=== PATIENT | female | born 1940 | race Caucasian/White ===

== ENCOUNTER 2018-11-14 21:35 | Emergency (ER) | payer MEDICARE, OTHER ==
--- NOTE | 2018-11-14 21:51 | Emergency Department Record ---
History of Present Illness - General Chief complaint: Cold Stated complaint: COUGH,FEVER, Time Seen by Provider: 11/14/18 21:37 Source: Patient Mode of Arrival: Ambulatory Limitations: No limitations - History of Present Illness Initial comments: 78 yo female presents to ED for evaluation of cough, fever symptoms that began last night. Patient denies history of asthma or COPD, denies nausea, vomiting, or loose stools. Patient does report receiving an influenza vaccination this year as well. Patient does report several ill-contacts at home with similar symptoms as well. MD complaint: Other Onset/Timin -: Hour(s) Severity: Moderate Consistency: Intermittent Improves with: None Worsens with: Other (Deep breath) Associated Symptoms: Cough - Related Data Home Medications Medication Instructions Recorded Confirmed Last Taken Aspirin [Aspir-Low] 81 mg PO DAILY 11/14/18 11/14/18 11/14/18 Calcium Carbonate/Vitamin D3 1 each PO DAILY 11/14/18 11/14/18 11/14/18 [Calcium 600 + Vit D Tablet] Cyanocobalamin (Vitamin B-12) 1 tab PO DAILY 11/14/18 11/14/18 11/14/18 [Vitamin B-12] Ergocalciferol (Vitamin D2) 50,000 unit PO WEEKLY 11/14/18 11/14/18 11/12/18 [Vitamin D2] Furosemide 20 mg PO DAILY 11/14/18 11/14/18 11/14/18 Isosorbide Mononitrate [Imdur] 10 mg PO BID 11/14/18 11/14/18 11/14/18 Levothyroxine Sodium [Synthroid] 100 mcg PO DAILY 11/14/18 11/14/18 11/14/18 Lisinopril/Hydrochlorothiazide 1 each PO DAILY 11/14/18 11/14/18 11/14/18 [Lisinopril-Hctz 20-12.5 mg Tab] Lovastatin 20 mg PO DAILY 11/14/18 11/14/18 11/14/18 Multivitamin [Multi-Vitamin Daily] 1 each PO DAILY 11/14/18 11/14/18 11/14/18 [place]-3 Fatty Acids/Fish Oil [Fish 1 cap PO DAILY 11/14/18 11/14/18 11/14/18 Oil 1,000 mg Capsule] Omeprazole 1 cap PO BID 11/14/18 11/14/18 11/14/18 Potassium Chloride [Klor-Con] 20 meq PO DAILY 11/14/18 11/14/18 11/14/18 Rivaroxaban [Xarelto] 20 mg PO DAILY 11/14/18 11/14/18 11/14/18 Sotalol HCl [Sotalol] 80 mg PO BID 11/14/18 11/14/18 11/14/18 Allergies Allergy/AdvReac Type Severity Reaction Status Date / Time acetaminophen [From Vicodin] AdvReac NAUSEA Verified 11/14/18 22:03 amoxicillin AdvReac NAUSEA Verified 11/14/18 22:03 azithromycin AdvReac NAUSEA Verified 11/14/18 22:03 [From Zithromax Z-Steve] diphenhydramine AdvReac TACHYCARDIA Verified 11/14/18 22:03 [From Benadryl] hydrocodone [From Vicodin] AdvReac NAUSEA Verified 11/14/18 22:03 ibuprofen [From Motrin] AdvReac NAUSEA Verified 11/14/18 22:03 propoxyphene [From Darvon] AdvReac TACHYCARDIA Verified 11/14/18 22:03 Review of Systems Constitutional: Reports: Fever. Denies: Chills, Malaise, Night sweats Eyes: Denies: Eye discharge, Eye pain ENT: Reports: Congestion. Denies: Ear pain, Epistaxis Respiratory: Reports: Cough. Denies: Dyspnea Cardiovascular: Denies: Chest pain, Dyspnea on exertion Endocrine: Denies: Fatigue, Heat or cold intolerance Gastrointestinal: Denies: Abdominal pain, Nausea, Vomiting Genitourinary: Denies: Incontinence, Retention Musculoskeletal: Denies: Arthralgia, Back pain, Gout, Joint swelling Skin: Denies: Bruising, Change in color Neurological: Denies: Abnormal gait, Confusion, Headache, Seizure Psychiatric: Denies: Anxiety Hematological/Lymphatic: Denies: Anemia, Blood Clots Physical Exam - General General Appearance: Alert, Oriented x3, Cooperative, Mild distress Limitations: No limitations - Head Head exam: Atraumatic, Normocephalic, Normal inspection Head exam detail: negative: Abrasion, Contusion, White's sign, General tenderness, Hematoma, Laceration - Eye Eye exam: Normal appearance. negative: Conjunctival injection, Periorbital swelling, Periorbital tenderness, Scleral icterus - ENT Ear exam: negative: Auricular hematoma, Auricular trauma Nasal Exam: negative: Active bleeding, Discharge, Dried blood, Foreign body Mouth exam: negative: Drooling, Laceration, Muffled voice, Tongue elevation - Neck Neck exam: Normal inspection. negative: Meningismus, Tenderness - Respiratory Respiratory exam: Normal lung sounds bilaterally. negative: Decreased breath sounds, Rales, Respiratory distress, Rhonchi, Stridor - Cardiovascular Cardiovascular Exam: Regular rate, Normal rhythm, Normal heart sounds - GI/Abdominal GI/Abdominal exam: Soft. negative: Rebound, Rigid, Tenderness - Rectal Rectal exam: Deferred - exam: Deferred - Extremities Extremities exam: Normal inspection. negative: Pedal edema, Tenderness - Back Back exam: Denies: CVA tenderness (R), CVA tenderness (L) - Neurological Neurological exam: Alert, Normal gait, Oriented X3 - Psychiatric Psychiatric exam: Normal affect, Normal mood - Skin Skin exam: Normal color. negative: Abrasion Type of lesion: negative: abrasion Course Vital Signs 11/14/18 21:45 Temperature 99.2 F Pulse Rate [ 66 Pulse Ox Probe] Respiratory 24 Rate Blood Pressure 142/63 [Left Arm] Pulse Ox 95 - Reevaluation(s) Reevaluation #1: 11/14/18 22:10 Influenza negative Reevaluation #2: 11/14/18 22:16 CXR: Negative for acute infiltrate Patient and her family members were updated on all results History and examination appear c/w viral URI Patient appears stable for discharge at this time. Disposition Disposition: Discharge Clinical Impression: URI (upper respiratory infection) Qualifiers: URI type: unspecified URI Qualified Code(s): J06.9 - Acute upper respiratory infection, unspecified Disposition: Home, Self-Care Condition: (2) Stable Instructions: Upper Respiratory Infection (ED) Additional Instructions: Return to ED if your symptoms worsen or if you have any concerns. Follow-up with your family doctor in 3-5 days as directed. Forms: Patient Portal Access Time of Disposition: 22:17 Quality - Quality Measures Quality Measures: N/A - Blood Pressure Screening Does Patient Have Any of the Following: Active Dx of HTN Blood Pressure Classification: Hypertensive Reading Systolic Measurement: 142 Diastolic Measurement: 63 Screening for High Blood Pressure: Patient Exclusion, Hx of HTN [G9744]
[2018-11-14 22:09] LABS: INFLUENZA A NEGATIVE (NEGATIVE); INFLUENZA B NEGATIVE (NEGATIVE)
--- NOTE | 2018-11-16 14:45 | RADIOLOGY REPORT ---
EXAM: CHEST, TWO VIEWS HISTORY: FEVER, COUGH, SORE THROAT. TECHNIQUE: PA and lateral views of the chest were obtained. Comparison: None. FINDINGS: The cardiomediastinal silhouette is normal in size. The pulmonary vasculature is not congested. No focal consolidation, pleural effusion, or pneumothorax is seen. Rounded opacity along the left hemidiaphragm posteriorly is likely a small area of focal eventration. IMPRESSION: NO EVIDENCE FOR PNEUMONIA OR PULMONARY EDEMA. JOB NUMBER: [id number] [facility]
== END 2018-11-14 22:32 | disposition home or self-care (01) ==
LOC: ER 21:35
DX: J06.9 Acute upper respiratory infection, unspecified (principal); R05 Cough; I10 Essential (primary) hypertension
CPT/HCPCS: 71046; 87400; 99283

== ENCOUNTER 2018-11-19 09:29 | Emergency (ER) | payer MEDICARE, OTHER ==
--- NOTE | 2018-11-19 10:52 | Emergency Department Record ---
History of Present Illness - General Chief Complaint: Cough Stated Complaint: RIB AREA PAINFUL/COUGH Time Seen by Provider: 11/19/18 09:48 Source: Patient Mode of Arrival: Ambulatory Limitations: No limitations - History of Present Illness Initial Comments: pt has been coughing for several days. she was seen 5 days ago and dx w a viral syndrome. she has contd to cough and for the last 2 days has l rib pain. her cough is productive now MD Complaint: Cough Onset/Timin -: Days(s) Consistency: Constant Improves With: Nothing Worsens With: Nothing Context: Sick contacts Associated Symptoms: Cough - Related Data Previous Rx's Medication Instructions Recorded Acetaminophen with Codeine 1 each PO Q8HR #7 tablet 11/19/18 [Tylenol with Codeine #3 Tablet] Cephalexin [Keflex] 500 mg PO TID #21 cap 11/19/18 Allergies Allergy/AdvReac Type Severity Reaction Status Date / Time amoxicillin AdvReac NAUSEA Verified 11/19/18 09:45 azithromycin AdvReac NAUSEA Verified 11/19/18 09:45 [From Zithromax Z-Steve] diphenhydramine AdvReac TACHYCARDIA Verified 11/19/18 09:45 [From Benadryl] hydrocodone [From Vicodin] AdvReac NAUSEA Verified 11/19/18 09:45 ibuprofen [From Motrin] AdvReac NAUSEA Verified 11/19/18 09:45 propoxyphene [From Darvon] AdvReac TACHYCARDIA Verified 11/19/18 09:45 Travel Screening - Travel/Exposure Within Last 30 Days Have you traveled within the last 30 days?: No - Travel/Exposure Within Last Year Have you traveled outside the [place] in the last year?: No - Additonal Travel Details Have you been exposed to anyone with a communicable illness?: No - Travel Symptoms Symptom Screening: Fatigue Review of Systems Reviewed: No additional complaints except as noted below Constitutional: Reports: As per HPI. Denies: Chills, Fever, Malaise, Night sweats, Weakness, Weight change Eyes: Reports: As per HPI. Denies: Eye discharge, Eye pain, Photophobia, Vision change ENT: Reports: As per HPI. Denies: Congestion, Dental pain, Ear pain, Epistaxis , Hearing loss, Throat pain Respiratory: Reports: As per HPI, Cough. Denies: Dyspnea, Hemoptysis, Stridor, Wheezes Cardiovascular: Reports: As per HPI. Denies: Arrhythmia, Chest pain, Dyspnea on exertion, Edema, Murmurs, Orthopnea, Palpitations, Paroxysmal nocturnal dyspnea, Rheumatic Fever, Syncope Endocrine: Reports: As per HPI. Denies: Fatigue, Heat or cold intolerance, Polydipsia, Polyuria Gastrointestinal: Reports: As per HPI. Denies: Abdominal pain, Constipation, Diarrhea, Hematemesis, Hematochezia, Melena, Nausea, Vomiting Genitourinary: Reports: As per HPI. Denies: Abnormal menses, Discharge, Dyspareunia, Dysuria, Frequency, Hematuria, Incontinence, Retention, Urgency Musculoskeletal: Reports: As per HPI. Denies: Arthralgia, Back pain, Gout, Joint swelling, Myalgia, Neck pain Skin: Reports: As per HPI. Denies: Bruising, Change in color, Change in hair/ nails, Lesions, Pruritus, Rash Neurological: Reports: As per HPI. Denies: Abnormal gait, Confusion, Headache, Numbness, Paresthesias, Seizure, Tingling, Tremors, Vertigo, Weakness Psychiatric: Reports: As per HPI. Denies: Anxiety, Auditory hallucinations, Depression, Homicidal thoughts, Suicidal thoughts, Visual hallucinations Hematological/Lymphatic: Reports: As per HPI. Denies: Anemia, Blood Clots, Easy bleeding, Easy bruising, Swollen glands Past Medical History - SOCIAL HISTORY Smoking Status: Former smoker Alcohol Use: None Drug Use: None - RESPIRATORY Hx Respiratory Disorders: Yes Hx Bronchitis: Yes Hx Pulmonary Embolism: Yes - CARDIOVASCULAR Hx Cardio Disorders: Yes Hx Hypertension: Yes Comment:: a-fib - NEURO Hx Neuro Disorders: No - GI Hx GI Disorders: No - Hx Genitourinary Disorders: No - ENDOCRINE Hx Endocrine Disorders: Yes Hx Thyroid Disease: Yes - MUSCULOSKELETAL Hx Musculoskeletal Disorders: No - PSYCH Hx Psych Problems: No - HEMATOLOGY/ONCOLOGY Hx Cancer: Yes (R breast 1993) Family Medical History Any Significant Family History?: No Hx Diabetes: Mother, Brother/Sister Hx Heart Disease: Father Hx HTN: Father Hx Stroke: Mother Physical Exam - General General Appearance: Alert, Oriented x3, Cooperative, Mild distress - Head Head exam: Normal inspection - Eye Eye exam: Normal appearance, PERRL, EOMI Pupils: Normal accommodation - ENT ENT exam: Normal exam, Mucous membranes moist, Normal external ear exam, Normal orophraynx, TM's normal bilaterally Ear exam: Normal external inspection. negative: External canal tenderness Nasal Exam: Normal inspection. negative: Discharge, Sinus tenderness Mouth exam: Normal external inspection, Tongue normal Teeth exam: Normal inspection. negative: Dental caries Throat exam: Normal inspection. negative: Tonsillar erythema, Tonsillar exudate - Neck Neck exam: Normal inspection, Full ROM. negative: Tenderness - Respiratory Respiratory exam: Normal lung sounds bilaterally, Chest wall tenderness. negative: Respiratory distress - Cardiovascular Cardiovascular Exam: Normal rhythm, Normal heart sounds, Bradycardia - GI/Abdominal GI/Abdominal exam: Soft, Normal bowel sounds. negative: Tenderness - Rectal Rectal exam: Deferred - exam: Deferred - Extremities Extremities exam: Normal inspection, Full ROM, Normal capillary refill. negative: Tenderness - Back Back exam: Reports: Normal inspection, Full ROM. Denies: Muscle spasm, Rash noted, Tenderness - Neurological Neurological exam: Alert, Normal gait, Oriented X3, Reflexes normal - Psychiatric Psychiatric exam: Normal affect, Normal mood - Skin Skin exam: Dry, Intact, Normal color, Warm Course Vital Signs 11/19/18 09:31 Temperature 98.0 F Pulse Rate 52 L Respiratory 16 Rate Blood Pressure 141/83 Pulse Ox 97 - Reevaluation(s) Reevaluation #1: 11/19/18 11:30 pt states she can take tyl 3 and keflex Disposition Disposition: Discharge Clinical Impression: Bronchitis Disposition: Home, Self-Care Condition: (1) Good Instructions: Acute Bronchitis (ED), Chest Wall Pain (ED) Additional Instructions: follow up with family doctor. return sooner if worse. Prescriptions: Acetaminophen with Codeine [Tylenol with Codeine #3 Tablet] 1 each PO Q8HR #7 tablet Cephalexin [Keflex] 500 mg PO TID #21 cap Forms: Patient Portal Access Quality - Quality Measures Quality Measures: N/A - Blood Pressure Screening Does Patient Have Any of the Following: No Blood Pressure Classification: Pre-Hypertensive BP Reading Systolic Measurement: 141 Diastolic Measurement: 83 Screening for High Blood Pressure: < Pre-Hypertensive BP, F/U Documented > [ G8950] Pre-Hypertensive Follow-up Interventions: Follow-up with rescreen every year.
--- NOTE | 2018-11-21 13:52 | RADIOLOGY REPORT ---
EXAM: LEFT RIBS WITH CHEST HISTORY: PATIENT HAS A COUGH TIMES SIX DAYS. LEFT LOWER RIB PAIN FROM COUGHING. TECHNIQUE: AP view of the chest and multiple views of the left ribs are provided along with the comparison study dated 11/14/18. FINDINGS: The cardiomediastinal silhouette is within normal limits for size and contour. The luciana appear unremarkable. There is no radiographic evidence of a focal infiltrate, pleural effusion, or pneumothorax. Multiple views of the left ribs demonstrate no radiographic evidence of a fracture or dislocation of the left ribs. IMPRESSION: 1. NO RADIOGRAPHIC EVIDENCE OF AN ACUTE INTRATHORACIC PROCESS. 2. NO RADIOGRAPHIC EVIDENCE OF A FRACTURE OR DISLOCATION OF THE LEFT RIBS. IF THERE IS FURTHER CLINICAL CONCERN THEN A BONE SCAN CAN BE OBTAINED FOR FURTHER EVALUATION. JOB NUMBER: [id number] [facility]
== END 2018-11-19 11:49 | disposition home or self-care (01) ==
LOC: ER 09:29
DX: J20.9 Acute bronchitis, unspecified (principal); Z87.891 Personal history of nicotine dependence
CPT/HCPCS: 99282; 99283